=== PATIENT | female | born 1955 | race Caucasian/White ===

== ENCOUNTER → 2017-03-12 | Outpatient (CLI) | payer MEDICARE, OTHER | LOC: WI 14:45 | PROVIDERS: ATTEND Family Medicine Geriatric Medicine | DX: M81.0 Age-related osteoporosis without current pathological fracture (principal) | CPT/HCPCS: 77080 ==

== ENCOUNTER → 2017-06-03 | Outpatient (CLI) | payer MEDICARE, OTHER ==
[2017-06-03 09:42] LABS: ABSOLUTE EOSINOPHILS # (AUTO) 0.1 10^3/uL (0.0-0.6); ABSOLUTE LYMPHOCYTES (AUTO) 1.8 10^3/uL (0.5-4.7); ABSOLUTE MONOCYTES (AUTO) 0.4 10^3/uL (0.1-1.4); ABSOLUTE NEUT (AUTO) 3.5 10^3/uL (1.7-8.2); BASOPHILS % (AUTO) 0.6 % (0-2); EOSINOPHILS % (AUTO) 2.3 % (0-6); HEMATOCRIT 41.3 % (36.0-47.0); HEMOGLOBIN 14.1 g/dL (12.0-15.5); LYMPHOCYTES % (AUTO) 30.8 % (13-45); MEAN CORPUSCULAR HEMOGLOBIN 30.8 pg (27.0-33.4); MEAN CORPUSCULAR HGB CONC 34.3 g/dL (32.0-36.0); MEAN CORPUSCULAR VOLUME 90 fl (80-97); MONOCYTES % (AUTO) 7.3 % (3-13); RED BLOOD COUNT 4.59 10^6/uL (3.72-5.28); RED CELL DISTRIBUTION WIDTH 13.6 % (11.5-14.0); WHITE BLOOD COUNT 5.9 10^3/uL (4.0-10.5)
[2017-06-03 10:14] LABS: ALANINE AMINOTRANSFERASE 90 U/L (9-52); ALBUMIN 4.5 g/dL (3.5-5.0); ALKALINE PHOSPHATASE 108 U/L (38-126); ANION GAP 11 (5-19); ASPARTATE AMINO TRANSFERASE 50 U/L (14-36); BILIRUBIN,DIRECT 0.4 mg/dL (0.0-0.4); BILIRUBIN,TOTAL 0.5 mg/dL (0.2-1.3); BLOOD UREA NITROGEN 13 mg/dL (7-20); CALCIUM 10.2 mg/dL (8.4-10.2); CARBON DIOXIDE 29 mmol/L (22-30); CHLORIDE 104 mmol/L (98-107); CHOLESTEROL 209.71 mg/dL (0-200); CREATININE RESULT 0.56 mg/dL (0.52-1.25); Direct HDL 63 mg/dL (>40); GLUCOSE 89 mg/dL (75-110); POTASSIUM 5.2 mmol/L (3.6-5.0); SODIUM 143.6 mmol/L (137-145); TRIGLYCERIDES 173 mg/dL (<150)
[2017-06-03 10:25] LABS: DIRECT LDL 112 mg/dL (<100)
[2017-06-03 10:29] LABS: VLDL CHOLESTEROL 34.6 mg/dL (10-31)
== END ==
LOC: OD 08:42
PROVIDERS: ATTEND Family Medicine Geriatric Medicine
DX: E78.5 Hyperlipidemia, unspecified (principal); I10 Essential (primary) hypertension; E03.9 Hypothyroidism, unspecified; R79.89 Other specified abnormal findings of blood chemistry; Z79.899 Other long term (current) drug therapy
CPT/HCPCS: 36415; 80053; 80061; 82306; 84443; 85025

== ENCOUNTER → 2017-06-30 | Outpatient (CLI) | payer MEDICARE, OTHER ==
[2017-06-30 10:51] LABS: ALANINE AMINOTRANSFERASE 76 U/L (9-52); ALBUMIN 4.4 g/dL (3.5-5.0); ALKALINE PHOSPHATASE 109 U/L (38-126); ASPARTATE AMINO TRANSFERASE 42 U/L (14-36); BILIRUBIN,DIRECT 0.4 mg/dL (0.0-0.4); BILIRUBIN,TOTAL 0.4 mg/dL (0.2-1.3); TOTAL PROTEIN 6.8 g/dL (6.3-8.2)
== END ==
LOC: OD 09:36
PROVIDERS: ATTEND Family Medicine Geriatric Medicine
DX: R94.6 Abnormal results of thyroid function studies (principal); R79.89 Other specified abnormal findings of blood chemistry; Z79.899 Other long term (current) drug therapy
CPT/HCPCS: 36415; 80076; 84443

== ENCOUNTER → 2017-08-10 | Outpatient (CLI) | payer MEDICARE, OTHER ==
[2017-08-10 14:33] LABS: POTASSIUM 5.1 mmol/L (3.6-5.0)
== END ==
LOC: OD 13:06
PROVIDERS: ATTEND Family Medicine Geriatric Medicine
DX: E87.5 Hyperkalemia (principal); R79.89 Other specified abnormal findings of blood chemistry; Z79.899 Other long term (current) drug therapy
CPT/HCPCS: 36415; 84132; 84450; 84460

== ENCOUNTER → 2017-08-16 | Outpatient (CLI) | payer MEDICARE, OTHER ==
[2017-08-16 11:51] LABS: POTASSIUM 4.6 mmol/L (3.6-5.0)
== END ==
LOC: OD 10:40
PROVIDERS: ATTEND Family Medicine Geriatric Medicine
DX: E78.5 Hyperlipidemia, unspecified (principal); R79.89 Other specified abnormal findings of blood chemistry; Z79.899 Other long term (current) drug therapy
CPT/HCPCS: 36415; 80074; 82977; 84132

== ENCOUNTER → 2017-09-09 | Outpatient (CLI) | payer MEDICARE, OTHER ==
[2017-09-09 15:04] LABS: ALANINE AMINOTRANSFERASE 81 U/L (9-52); ASPARTATE AMINO TRANSFERASE 38 U/L (14-36)
== END ==
LOC: OD 13:26
PROVIDERS: ATTEND Family Medicine Geriatric Medicine
DX: R79.89 Other specified abnormal findings of blood chemistry (principal)
CPT/HCPCS: 36415; 84450; 84460

== ENCOUNTER → 2017-12-10 | Outpatient (CLI) | payer MEDICARE, OTHER ==
[2017-12-10 12:13] LABS: ALANINE AMINOTRANSFERASE 81 U/L (9-52); ASPARTATE AMINO TRANSFERASE 41 U/L (14-36); GAMMA-GLUTAMYL TRANSFERASE 205 U/L (8-78)
== END ==
LOC: OD 10:04
PROVIDERS: ATTEND Family Medicine Geriatric Medicine
DX: R79.89 Other specified abnormal findings of blood chemistry (principal); Z79.899 Other long term (current) drug therapy
CPT/HCPCS: 36415; 82977; 84450; 84460

== ENCOUNTER → 2018-08-09 | Outpatient (CLI) | payer MEDICARE, OTHER ==
--- NOTE | 2018-08-09 09:41 | WOMENS IMAGING REPORT ---
EXAM DESCRIPTION: BILAT SCREENING MAMMO W/CAD COMPLETED DATE/TIME: 08/09/2018 9:26 am REASON FOR STUDY: BILATERAL SCREENING MAMMO/Z12.31 Z12.31 ENCNTR SCREEN MAMMOGRAM FOR MALIGNANT SUNDAY PLASM OF CRYSTAL COMPARISON: New baseline, previous films over 10 years ago TECHNIQUE: Standard craniocaudal and mediolateral oblique views of each breast recorded using [email or web address] l acquisition. LIMITATIONS: None. FINDINGS: Findings present which are benign by mammographic criteria. No suspicious masses, calcifi cations or architectural distortion. Pertinent benign findings: Postsurgical changes from bilateral breast reduction and lift. Read with the assistance of CAD. .[facility] - R2 Cenova Version 1.3 .[facility] - R2 Cenova Version 1.3 .[facility] - R2 Cenova Version 2.4 .[facility] - R2 Cenova Version 2.4 .[facility] - R2 Lead Assembler Version 9.2 Benign mammographic findings may include one or more of the following: Smooth masses, popcorn/rim/co arse calcifications, asymmetries, post-procedure changes, and lesions with long-standing stability. IMPRESSION: BENIGN MAMMOGRAPHIC FINDINGS. BIRADS 2 BREAST DENSITY: a. The breasts are almost entirely fatty. BIRAD: 2 BENIGN FINDING(S) RECOMMENDATION: ROUTINE SCREENING Please continue yearly bilateral screening mammography/tomosynthesis in July 2019 COMMENT: The patient has been notified of the results by letter per SA requirements. Additional no tification policies are in place for contacting patient with suspicious or incomplete findings. Quality ID #[id number]: The [employer] recommends an annual screening mammogram for women aged 40 years or over. This facility utilizes a reminder system to ensure that all patients receive reminder letters, and/or direct phone calls for appointments. This includes reminders for routine scr eening mammograms, diagnostic mammograms, or other Breast Imaging Interventions when appropriate. Th is patient will be placed in the appropriate reminder system. The [employer] (ACR) has developed recommendations for screening MRI of the breast s in certain patient populations, to be used in conjunction with mammography. Breast MRI surveillanc e may be appropriate for women with more than 20% lifetime risk of developing breast cancer as deter mined by genetic testing, significant family history of the disease, or history of mantle radiation f or Hodgkins Disease. ACR Practice Guidelines 2008. TECHNICAL DOCUMENTATION: FINDING NUMBER: (1) ASSESSMENT: (1) JOB ID: [id number] [employer]- All Rights Reserved Reading location - IP/workstation name: [email or web address]
== END ==
LOC: WI 08:45
PROVIDERS: ATTEND Internal Medicine
DX: Z12.31 Encounter for screening mammogram for malignant neoplasm of breast (principal)
CPT/HCPCS: 77067

== ENCOUNTER → 2018-09-05 | Outpatient (CLI) | payer MEDICARE ==
[2018-09-05 11:14] LABS: ABSOLUTE EOSINOPHILS # (AUTO) 0.2 10^3/uL (0.0-0.6); ABSOLUTE LYMPHOCYTES (AUTO) 1.7 10^3/uL (0.5-4.7); ABSOLUTE MONOCYTES (AUTO) 0.4 10^3/uL (0.1-1.4); ABSOLUTE NEUT (AUTO) 3.9 10^3/uL (1.7-8.2); BASOPHILS % (AUTO) 0.6 % (0-2); EOSINOPHILS % (AUTO) 3.6 % (0-6); HEMATOCRIT 41.2 % (36.0-47.0); HEMOGLOBIN 13.9 g/dL (12.0-15.5); MEAN CORPUSCULAR HGB CONC 33.8 g/dL (32.0-36.0); MEAN CORPUSCULAR VOLUME 89 fl (80-97); MONOCYTES % (AUTO) 6.6 % (3-13); PLATELET COUNT 277 10^3/uL (150-450); RED BLOOD COUNT 4.65 10^6/uL (3.72-5.28); RED CELL DISTRIBUTION WIDTH 13.6 % (11.5-14.0); SEGMENTED NEUTROPHILS % (AUTO) 62.2 % (42-78); TOTAL CELLS COUNTED % (AUTO) 100 %; WHITE BLOOD COUNT 6.2 10^3/uL (4.0-10.5)
[2018-09-05 11:49] LABS: ALANINE AMINOTRANSFERASE 52 U/L (9-52); ALBUMIN 4.5 g/dL (3.5-5.0); ALKALINE PHOSPHATASE 131 U/L (38-126); ANION GAP 12 (5-19); ASPARTATE AMINO TRANSFERASE 38 U/L (14-36); BILIRUBIN,DIRECT 0.3 mg/dL (0.0-0.4); BILIRUBIN,TOTAL 0.4 mg/dL (0.2-1.3); BLOOD UREA NITROGEN 14 mg/dL (7-20); CARBON DIOXIDE 30 mmol/L (22-30); CHLORIDE 102 mmol/L (98-107); CHOLESTEROL 225.32 mg/dL (0-200); GLUCOSE 88 mg/dL (75-110); POTASSIUM 4.7 mmol/L (3.6-5.0); SODIUM 143.7 mmol/L (137-145); TOTAL PROTEIN 7.2 g/dL (6.3-8.2); TRIGLYCERIDES 193 mg/dL (<150)
[2018-09-05 12:00] LABS: DIRECT LDL 132 mg/dL (<100)
[2018-09-05 12:02] LABS: VLDL CHOLESTEROL 38.6 mg/dL (10-31)
== END ==
LOC: OD 09:37
PROVIDERS: ATTEND Internal Medicine
DX: E03.9 Hypothyroidism, unspecified (principal); E78.5 Hyperlipidemia, unspecified; R10.9 Unspecified abdominal pain; D64.9 Anemia, unspecified; E55.9 Vitamin D deficiency, unspecified
CPT/HCPCS: 36415; 80053; 80061; 82306; 84443; 85025

== ENCOUNTER 2018-09-19 10:36 | Day surgery (SDC) | payer MEDICARE ==
[~2018-09-19 10:36] MED LIST: PROPOFOL INJ 200 MG/20 ML VIAL IV ONE
[2018-09-19 12:18] VITALS: BP 106/70
--- NOTE | 2018-09-19 12:22 | Operative Report ---
Operative Report DATE OF SURGERY: 09/19/18 Operative Report: The risks, benefits and alternatives of the procedure including the risks of bleeding, perforation requiring surgery are explained to the patient in detail and informed consent was obtained. Patient was brought back to the endoscopy suite and placed in the left, lateral decubital position. Timeout was called. Propofol medication is administered. A rectal examination is done which did not reveal any masses, tears or fissures. An Olympus videoscope was introduced into the patient's rectum. The scope was then carefully advanced all the way to the cecum. The cecum was identified by the usual anatomical landmarks including the ileocecal valve as well as the appendiceal office. Photodocumentation is obtained. The scope was then sequentially pulled back via the various segments of the colon including the ascending colon, hepatic flexure, transverse colon, splenic flexure, descending colon and finally into the rectosigmoid portions of the colon. Retroflexion maneuver was performed. PREOPERATIVE DIAGNOSIS: Change in bowel habits POSTOPERATIVE DIAGNOSIS: Mild right colon inflammation status post biopsy without collagenous, microscopic colitis. OPERATION: Colonoscopy with biopsy SURGEON: STEPHANIE ASHRAF ANESTHESIA: LMAC TISSUE REMOVED OR ALTERED: As noted above. COMPLICATIONS: None. INTRAOPERATIVE FINDINGS: As noted above. PROCEDURE: Patient tolerated the procedure well. No immediate postprocedure complications are noted. Patient discharged in good condition. Discharge date 09/19/2018. Discharge diet: Regular. Discharge activity: Regular. 2-3-week follow-up to discuss findings. Patient is instructed to call the office or proceed to the emergency room should there be any further problems or questions. Wait on the pathology.
== END 2018-09-19 12:09 | disposition home or self-care (01) ==
LOC: END 10:36
PROVIDERS: ATTEND Internal Medicine Gastroenterology
DX: K52.9 Noninfective gastroenteritis and colitis, unspecified (principal); K64.8 Other hemorrhoids; I10 Essential (primary) hypertension; E78.5 Hyperlipidemia, unspecified; E03.9 Hypothyroidism, unspecified; M16.10 Unilateral primary osteoarthritis, unspecified hip; G25.0 Essential tremor; E87.5 Hyperkalemia; I35.8 Other nonrheumatic aortic valve disorders; Z87.891 Personal history of nicotine dependence
CPT/HCPCS: 45380; 88305 ×2; J2704; 811

== ENCOUNTER → 2018-11-02 | Outpatient (CLI) | payer MEDICARE ==
--- NOTE | 2018-11-02 10:57 | RADIOLOGY REPORT (SQ) ---
EXAM DESCRIPTION: CT LUMBAR SPINE WITHOUT COMPLETED DATE/TIME: 11/02/2018 10:32 am REASON FOR STUDY: SPINAL STENOSIS (M48.00) M48.00 SPINAL STENOSIS, SITE UNSPECIFIED COMPARISON: None. TECHNIQUE: Axial images acquired through the lumbar spine without intravenous contrast. Images revi ewed with lung, soft tissue and bone windows. Reconstructed coronal and sagittal MPR images reviewed . All images stored on PACS. All CT scanners at this facility use dose modulation, iterative reconstruction, and/or weight based d osing when appropriate to reduce radiation dose to as low as reasonably achievable (ALARA). [facility]: Dose Right [facility]: CareDose [facility]: Dose Right [facility]: Teradose 4D [facility]: Smart [employer] RADIATION DOSE: CT Rad equipment meets quality standard of care and radiation dose reduction techniq ues were employed. CTDIvol: 25.6 mGy. DLP: 764 mGy-cm. mGy. LIMITATIONS: None. FINDINGS: SEGMENTATION: Normal. No transitional anatomy. ALIGNMENT: Mild lower lumbar dextroconvex spinal curvature. VERTEBRAL BODIES: No evidence of fracture or other acute findings. No suspicious osseous lesions. C hronic endplate changes at L3-4, L4-5 DISCS: Broad-based disc bulge at L2-3 with likely moderate canal stenosis. Disc height loss with cav itation at L3-4 with likely mild to moderate central canal stenosis. Additional moderate disc height loss at L4-5. There is associated osteophytes and subchondral cystic formation. PEDICLES, TRANSVERSE PROCESSES: Evidence of right L4-5 laminectomy. No evidence of fracture. FACETS, POSTERIOR ELEMENTS: Evidence of posterior decompression L4-5. No evidence of facet dislocati on. Lower lumbar Facet arthropathy greatest at L3 through S1 on the left. There is mild to moderate osseous neural foraminal narrowing at L4-5 and L5-S1 on the left and ycfr-uv-trlxcobl osseous neural foraminal narrowing at L3-4 and L4-5 on the right. HARDWARE: None in the spine. VISUALIZED RIBS: No fractures. SOFT TISSUES: Aortoiliac atherosclerosis. Calcified hepatic granuloma. OTHER: No other significant finding. IMPRESSION: No evidence of acute bony abnormality. Lower lumbar dextroconvex curvature with associated degenerative change. Facet disease and disc bulg e with ntok-an-qsifexgv neural foraminal narrowing at L3-S1 as detailed above. Evidence of prior pos terior decompression at L4-5 with at least moderate spinal canal stenosis at L2-3 and L3-4. TECHNICAL DOCUMENTATION: JOB ID: [id number] Quality ID # [id number]: Final reports with documentation of one or more dose reduction techniques (e.g., Au tomated exposure control, adjustment of the mA and/or kV according to patient size, use of iterative reconstruction technique) 2010 [employer]- All Rights Reserved Reading location - IP/workstation name: [facility]
--- NOTE | 2018-11-02 12:22 | RADIOLOGY REPORT (SQ) ---
EXAM DESCRIPTION: HIP RIGHT AP/LATERAL COMPLETED DATE/TIME: 11/02/2018 10:42 am REASON FOR STUDY: PAIN IN RIGHT HIP (M25.551) M48.00 SPINAL STENOSIS, SITE UNSPECIFIED COMPARISON: None. NUMBER OF VIEWS: Two views. TECHNIQUE: AP pelvis and additional frog-leg view of the right hip. LIMITATIONS: None. FINDINGS: MINERALIZATION: Decreased. RIGHT HIP: No evidence of fracture or dislocation. Extensive degenerative change with joint space lo ss, subchondral sclerosis and osteophytosis. There is superior bone on bone contact. LEFT HIP: Partially evaluated left total hip arthroplasty with screw fixated acetabular component. PUBIS AND ISCHIUM: No fracture. PELVIS: No fracture. SACRUM: No fracture or dislocation. No worrisome bone lesions. LOWER LUMBAR SPINE: Lower lumbar curvature, degenerative disc disease and facet arthropathy. SOFT TISSUES: Scattered for pelvic phleboliths. OTHER: No other significant finding. IMPRESSION: No evidence of acute bony abnormality. Moderate to severe right hip osteoarthritic change. Partially evaluated left hip arthroplasty. TECHNICAL DOCUMENTATION: JOB ID: [id number] [employer]- All Rights Reserved Reading location - IP/workstation name: [facility]-[email or web address]
== END ==
LOC: RAD 10:19
PROVIDERS: ATTEND Internal Medicine
DX: M48.00 Spinal stenosis, site unspecified (principal); M25.551 Pain in right hip
CPT/HCPCS: 72131

== ENCOUNTER → 2018-11-23 | Outpatient (CLI) | payer MEDICARE ==
[2018-11-23 15:16] LABS: A TYPE INFLUENZA AG NEGATIVE (NEGATIVE); B INFLUENZA AG NEGATIVE (NEGATIVE)
== END ==
LOC: OD 14:24
PROVIDERS: ATTEND Internal Medicine
DX: J11.1 Influenza due to unidentified influenza virus with other respiratory manifestations (principal)
CPT/HCPCS: 87804

== ENCOUNTER → 2019-09-18 | Outpatient (CLI) | payer MEDICARE ==
[2019-09-18 14:16] LABS: FOLATE > 20.00 ng/mL (>2.76)
== END ==
LOC: OD 12:08
PROVIDERS: ATTEND Pain Medicine Interventional Pain Medicine
DX: M79.2 Neuralgia and neuritis, unspecified (principal)
CPT/HCPCS: 36415; 82607; 82652; 82746

== ENCOUNTER → 2019-12-07 | Outpatient (CLI) | payer MEDICARE ==
--- NOTE | 2019-12-07 13:33 | EKG REPORT ---
SEVERITY:- BORDERLINE ECG - SINUS RHYTHM LOW VOLTAGE THROUGHOUT : Confirmed by: David Light MD 07-Dec-2019 13:31:52
--- NOTE | 2019-12-07 13:57 | RADIOLOGY REPORT (SQ) ---
EXAM DESCRIPTION: CHEST PA/LATERAL COMPLETED DATE/TIME: 12/07/2019 12:57 pm REASON FOR STUDY: PRE-OP COMPARISON: None. EXAM PARAMETERS: NUMBER OF VIEWS: two views TECHNIQUE: Digital Frontal and Lateral radiographic views of the chest acquired. RADIATION DOSE: NA LIMITATIONS: none FINDINGS: LUNGS AND PLEURA: No opacities, masses or pneumothorax. No pleural effusion. MEDIASTINUM AND HILAR STRUCTURES: No masses or contour abnormalities. HEART AND VASCULAR STRUCTURES: Heart normal size. No evidence for failure. BONES: No acute findings. HARDWARE: None in the chest. OTHER: No other significant finding. IMPRESSION: NO SIGNIFICANT RADIOGRAPHIC FINDING IN THE CHEST. TECHNICAL DOCUMENTATION: JOB ID: [id number] 2010 [employer]- All Rights Reserved Reading location - IP/workstation name: [email or web address]
[2019-12-07 14:00] LABS: ABSOLUTE EOSINOPHILS # (AUTO) 0.1 10^3/uL (0.0-0.6); ABSOLUTE LYMPHOCYTES (AUTO) 2.2 10^3/uL (0.5-4.7); ABSOLUTE MONOCYTES (AUTO) 0.4 10^3/uL (0.1-1.4); ABSOLUTE NEUT (AUTO) 3.8 10^3/uL (1.7-8.2); BASOPHILS % (AUTO) 0.6 % (0-2); EOSINOPHILS % (AUTO) 2.1 % (0-6); HEMATOCRIT 39.3 % (36.0-47.0); HEMOGLOBIN 13.3 g/dL (12.0-15.5); LYMPHOCYTES % (AUTO) 33.3 % (13-45); MEAN CORPUSCULAR HEMOGLOBIN 29.1 pg (27.0-33.4); MEAN CORPUSCULAR HGB CONC 33.8 g/dL (32.0-36.0); MEAN CORPUSCULAR VOLUME 86 fl (80-97); MONOCYTES % (AUTO) 6.3 % (3-13); PLATELET COUNT 291 10^3/uL (150-450); RED BLOOD COUNT 4.58 10^6/uL (3.72-5.28); RED CELL DISTRIBUTION WIDTH 13.9 % (11.5-14.0); SEGMENTED NEUTROPHILS % (AUTO) 57.7 % (42-78); TOTAL CELLS COUNTED % (AUTO) 100 %; WHITE BLOOD COUNT 6.6 10^3/uL (4.0-10.5)
[2019-12-07 14:05] LABS: APPEARANCE,URINE CLEAR; BILIRUBIN,URINE NEGATIVE (NEGATIVE); COLOR,URINE YELLOW; GLUCOSE, URINE NEGATIVE (NEGATIVE); KETONES,URINE NEGATIVE (NEGATIVE); LEUKOCYTE ESTERASE,URINE TRACE (NEGATIVE); NITRITE,URINE NEGATIVE (NEGATIVE); PROTEIN,URINE NEGATIVE (NEGATIVE); URINE SPECIFIC GRAVITY 1.015; UROBILINOGEN,URINE NEGATIVE mg/dL (<2.0)
[2019-12-07 14:36] LABS: ALBUMIN 4.2 g/dL (3.5-5.0); ANION GAP 12 (5-19); BLOOD UREA NITROGEN 14 mg/dL (7-20); CALCIUM 9.7 mg/dL (8.4-10.2); CARBON DIOXIDE 25 mmol/L (22-30); CHLORIDE 102 mmol/L (98-107); GLUCOSE 62 mg/dL (75-110); POTASSIUM 4.1 mmol/L (3.6-5.0)
[2019-12-07 14:41] LABS: PREALBUMIN 27.4 mg/dL (17.6-36.0)
[2019-12-07 14:45] LABS: C-REACTIVE PROTEIN < 5.0 mg/L (<10.0)
[2019-12-07 14:46] LABS: ERYTHROCYTE SEDIMENTATION RATE 16 mm/hr (0-30)
== END ==
LOC: OD 12:18
PROVIDERS: ATTEND Orthopaedic Surgery
DX: Z01.818 Encounter for other preprocedural examination (principal); R94.31 Abnormal electrocardiogram [ECG] [EKG]; I10 Essential (primary) hypertension
CPT/HCPCS: 36415; 71046; 80048; 81001; 82040; 82306; 84134; 85025; 85652; 86140; 93005; 93010

== ENCOUNTER 2020-01-02 05:23 | Day surgery (SDC) | payer MEDICARE ==
[~2020-01-02 05:23] MED LIST changes: +ACETAMINOPHEN 325 MG TABLET ONE; +ACETAMINOPHEN 325 MG TABLET PO PRN; +CEFAZOLIN SODIUM 2 GM in DEXTROSE 5%-WATER 100 ML IV PRN; +CELECOXIB 200 MG CAPSULE ONE; +CELECOXIB 200 MG CAPSULE PO PRN; +GABAPENTIN 100 MG CAPSULE ONE; +GABAPENTIN 100 MG CAPSULE PO PRN; +LACTATED RINGERS 1000 ML IV PRN; +LIDOCAINE 0.5% INJ-PF (5 MG/ML) 50 ML SDV SUBCUT PRN; +ONDANSETRON HCL INJ/PF 4 MG/2 ML SDV IV PRN; +ONDANSETRON HCL INJ/PF 4 MG/2 ML SDV ONE; +OXYCODONE HCL SR 10 MG TABLET PO ONE; +OXYCODONE HCL SR 10 MG TABLET PO PRN; +PANTOPRAZOLE SODIUM 20 MG TABLET.DR PO ONE; +PANTOPRAZOLE SODIUM 20 MG TABLET.DR PO PRN; -PROPOFOL INJ 200 MG/20 ML VIAL IV ONE; +SCOPOLAMINE HYDROBROMIDE 1.5 MG PATCH.TD72 ONE; +SCOPOLAMINE HYDROBROMIDE 1.5 MG PATCH.TD72 TD PRN; +TRAMADOL HCL 50 MG TABLET ONE; +TRAMADOL HCL 50 MG TABLET PO PRN; +TRANEXAMIC ACID INJ/PF 1,000 MG/10 ML SDV IV PRN; +VANCOMYCIN HCL 1,000 MG in DEXTROSE 5%-WATER 250 ML IV PRN
[2020-01-02] MEDS ORDERED: FENTANYL CITRATE INJ/PF 100 MCG/2 ML AMPUL ONE (06:20)
[2020-01-02] MEDS ORDERED: DEXAMETHASONE SOD PHOSPHATE INJ 4 MG/1 ML VIAL ONE (06:20)
[2020-01-02] MEDS ORDERED: MIDAZOLAM 2 MG/2 ML INJ ONE (06:20)
[2020-01-02] MEDS ORDERED: TRANEXAMIC ACID INJ/PF 1,000 MG/10 ML SDV ONE ×2 (06:20→10:31)
[2020-01-02] MEDS ORDERED: ONDANSETRON HCL INJ/PF 4 MG/2 ML SDV ONE (06:20)
[2020-01-02] MEDS ORDERED: PROPOFOL INJ 200 MG/20 ML VIAL IV ONE ×2 (06:21→09:45)
[2020-01-02] MEDS ORDERED: LIDOCAINE 0.5% INJ-PF (5 MG/ML) 50 ML SDV ONE (06:21)
[2020-01-02] MEDS ORDERED: EPINEPHRINE INJ/PF 1 MG/1 ML AMPULE ONE (06:26)
[2020-01-02] MEDS ORDERED: BUPIVACAINE HCL 0.25 % INJ/PF (2.5 MG/1 ML) 30 ML VIAL ONE (07:06)
[2020-01-02] MEDS ORDERED: KETOROLAC TROMETHAMINE INJ/PF 30 MG/1 ML SDV ONE (07:06)
[2020-01-02] MEDS ORDERED: VANCOMYCIN HCL INJ 1000 MG VIAL ONE (07:06)
[2020-01-02] MEDS ORDERED: LIDOCAINE 1% INJ-PF (10 MG/ML) 30 ML SDV ONE (08:05)
[2020-01-02] MEDS ORDERED: FENTANYL CITRATE INJ/PF 100 MCG/2 ML AMPUL IV PRN ×3 (08:06)
[2020-01-02] MEDS ORDERED: MEPERIDINE HCL/PF INJ 25 MG/1 ML DISP.SYRIN IV PRN (08:06)
[2020-01-02] MEDS ORDERED: ONDANSETRON HCL INJ/PF 4 MG/2 ML SDV IV PRN (08:06)
[2020-01-02] MEDS ORDERED: DIPHENHYDRAMINE HCL 50 MG/ML VIAL IV PRN (08:06)
[2020-01-02] MEDS ORDERED: MORPHINE SULFATE 10 MG/ML INJ IV PRN ×2 (08:06→09:59)
[2020-01-02] MEDS ORDERED: PROMETHAZINE HCL INJ 25 MG/1 ML VIAL IV PRN ×2 (08:06)
[2020-01-02] MEDS ORDERED: OXYCODONE HCL IR 5 MG TABLET PO PRN (09:59)
[2020-01-02] MEDS ORDERED: TRAMADOL HCL 50 MG TABLET PO PRN (10:00)
[2020-01-02] MEDS ORDERED: DIPHENHYDRAMINE HCL 25 MG CAPSULE PO PRN (10:01)
[2020-01-02] MEDS ORDERED: PANTOPRAZOLE SODIUM 20 MG TABLET.DR PO PRN (10:01)
[2020-01-02] MEDS ORDERED: ZOLPIDEM TARTRATE 5 MG TABLET PO PRN (10:01)
[2020-01-02] MEDS ORDERED: DOCUSATE SODIUM 100 MG CAPSULE PO PRN (10:03)
[2020-01-02] MEDS ORDERED: NORMAL SALINE 1000 ML 1,000 ML IV PRN (10:04)
[2020-01-02] MEDS ORDERED: ONDANSETRON 4 MG TAB.RAPDIS PO PRN (10:04)
[2020-01-02] MEDS ORDERED: DEXAMETHASONE SOD PHOS INJ 10 MG/1 ML VIAL ONE (10:31)
--- NOTE | 2020-01-02 13:26 | RADIOLOGY REPORT (SQ) ---
EXAM DESCRIPTION: NO CHG FLUORO; HIP IN OPERATING RM COMPLETED DATE/TIME: 01/02/2020 11:12 am REASON FOR STUDY: RIGHT HIP TOTAL ARTHROPLASTY ASSISTED WITH FLUORO IN OR COMPARISON: None. FLUOROSCOPY TIME: No recorded fluoro time. 2 Images saved to PACS LIMITATIONS: None. PROCEDURE: Right hip arthroplasty. FINDINGS: Images from fluoro document right hip arthroplasty in progress. IMPRESSION: Right hip arthroplasty in progress. Refer to operative note for further information. COMMENT: PQRS 6045F: Fluoroscopy time of the procedure is documented in the report. TECHNICAL DOCUMENTATION: JOB ID: [id number] 2010 [employer]- All Rights Reserved Reading location - IP/workstation name: [email or web address]
--- NOTE | 2020-01-02 13:26 | RADIOLOGY REPORT (SQ) ---
EXAM DESCRIPTION: NO CHG FLUORO; HIP IN OPERATING RM COMPLETED DATE/TIME: 01/02/2020 11:12 am REASON FOR STUDY: RIGHT HIP TOTAL ARTHROPLASTY ASSISTED WITH FLUORO IN OR COMPARISON: None. FLUOROSCOPY TIME: No recorded fluoro time. 2 Images saved to PACS LIMITATIONS: None. PROCEDURE: Right hip arthroplasty. FINDINGS: Images from fluoro document right hip arthroplasty in progress. IMPRESSION: Right hip arthroplasty in progress. Refer to operative note for further information. COMMENT: PQRS 6045F: Fluoroscopy time of the procedure is documented in the report. TECHNICAL DOCUMENTATION: JOB ID: [id number] 2010 [employer]- All Rights Reserved Reading location - IP/workstation name: [email or web address]
--- NOTE | 2020-01-02 13:34 | RADIOLOGY REPORT (SQ) ---
EXAM DESCRIPTION: HIP RIGHT AP/LATERAL COMPLETED DATE/TIME: 01/02/2020 10:26 am REASON FOR STUDY: post op total hip replacement M16.12 UNILATERAL PRIMARY OSTEOARTHRITIS, LEFT HIP COMPARISON: None. NUMBER OF VIEWS: Two views. TECHNIQUE: AP pelvis and additional frog-leg view of the right hip. LIMITATIONS: None. FINDINGS: Postoperative images show right hip arthroplasty in good position. Pre-existing left hip arthroplasty. IMPRESSION: Right hip arthroplasty. Refer to operative note for further information. TECHNICAL DOCUMENTATION: JOB ID: [id number] 2010 [employer]- All Rights Reserved Reading location - IP/workstation name: [email or web address]
--- NOTE | 2020-01-02 13:55 | Operative Report ---
Operative Report DATE OF SURGERY: 01/02/20 PREOPERATIVE DIAGNOSIS: Severe right hip primary osteoarthritis POSTOPERATIVE DIAGNOSIS: Severe right hip primary osteoarthritis OPERATION: Right total hip arthroplasty SURGEON: SHENG GOODRICH JR ANESTHESIA: Spinal COMPLICATIONS: None ESTIMATED BLOOD LOSS: 200 cc PROCEDURE: Implants: Biomet Taperloc micro-plasty size 12 femoral stem with lateral offset, a G7 size 50 cup, and a standard liner, a standard neck length 32 mm ceramic head BRIEF HISTORY: 64 year old female with severe degenerative arthritis of right hip, which has failed conservative treatment and has elected for a total hip arthroplasty. Risks include but are not limited to bleeding, infection, anesthesia, , injury to nerve or vessel, pain, scar, leg length inequality, dislocation, future surgery, and blood clots. Patient read through the pre-op counseling form and signed and solicited for surgery on their right hip. OPERATIVE PROCEDURE: Patient was brought to the operating room on and underwent spinal anesthesia. 2 grams of Ancef and 1 g of vancomycin was given. After proper anesthesia was obtained, patient was positioned, padded, prepped, and draped in the usual sterile fashion on the operating room table. Appropriate time out was performed. An anterior approach to the hip was undertaken with meticulous hemostasis through the deep interval. A capsulectomy was performed followed by exposure of the femoral neck. The femoral neck was cut in line with the femoral broach and the femoral head was removed. The acetabulum was then exposed with three retractors in an atraumatic fashion. Soft tissue and osteophytes were removed. Medialization reaming was performed followed by anatomic reaming up to accept a 50 mm acetabulum. Wound was irrigated with dilute betadyne solution and the 50 mm acetabulum was impacted into correct position and stability checked by manipulating the impaction handle which rocked the pelvis. A standard liner was impacted into the shell with good stability. Potential impinging osteophytes were removed. Attention was then directed toward the femur, which was exposed with two retractors in an atraumatic fashion. A bone hook was placed to carefully perform releases along the superior capsule until the femur was safely delivered through the wound. A primer boxer was utilized followed by lateralization rasping and then broaching up to accept a 12 femur. With a lateral offset neck and a standard head, stability was good in flexion and extension with equal leg lengths. The real lateral offset femur was impacted into a copiously irrigated femoral canal. A 32 mm standard head was impacted on a clean dry femoral taper. The hip was irrigated and reduced, further irrigation with antibiotic solution, betadine solution, then antibiotic solution. Bleeders were coagulated with bovie cautery. The fascia was then closed with number 2 Stratofix; the subcutaneous tissue closed with interrupted inverted 2-0 monocryl then running 3-0 monocryl subcuticular. Dermabond skin glue was applied followed by a silver dressing. All needle sponge and instrument counts were correct. Patient was awakened from sedation anesthesia and taken to recovery room in good condition. Thank you, Sheng Goodrich, DO
[2020-01-02] MEDS: ACETAMINOPHEN 325 MG TABLET PO SCH ×2 (14:19→22:08)
[2020-01-02] MEDS: KETOROLAC TROMETHAMINE INJ/PF 30 MG/1 ML SDV IV SCH (17:53)
[2020-01-02] MEDS: OXYCODONE HCL IR 5 MG TABLET PO PRN ×2 (17:54→22:08)
[2020-01-02] MEDS: CEFAZOLIN SODIUM 2 GM in DEXTROSE 5%-WATER 100 ML IV SCH (18:45)
[2020-01-02] MEDS: GABAPENTIN 100 MG CAPSULE PO SCH (22:08)
[2020-01-03] MEDS: CEFAZOLIN SODIUM 2 GM in DEXTROSE 5%-WATER 100 ML IV SCH (01:54)
[2020-01-03] MEDS: KETOROLAC TROMETHAMINE INJ/PF 30 MG/1 ML SDV IV SCH ×2 (01:54→09:16)
[2020-01-03] MEDS: ACETAMINOPHEN 325 MG TABLET PO SCH (06:36)
[2020-01-03 06:55] VITALS: BP 90/64
--- NOTE | 2020-01-03 07:19 | PDOC PROGRESS REPORT ---
Subjective Progress Note for:: 01/03/20 Subjective:: The patient is doing well this AM. Pain is present but not out of proportion and well controlled on their current medications. There are no new symptoms or overnight events. Overall they are felling well without complaints. They deny chest pain, shortness of breath or motor or sensory loss. Reason For Visit: M16.11 UNILATERAL PRIMARY OSTEOARTHRITIS, RIGHT HI Physical Exam Vital Signs: Temp Pulse Resp BP Pulse Ox 98.6 F 76 18 90/64 L 100 01/03/20 06:54 01/03/20 06:54 01/03/20 06:54 01/03/20 06:54 01/03/20 06:54 Intake & Output 01/02/20 01/03/20 01/04/20 06:59 06:59 06:59 Intake Total 0 2680 Output Total 875 Balance 0 1805 Weight 76.2 kg Physical Exam: Right lower extremity -Pulses 2+ distally -Compartments soft -Wound clean dry and intact no drainage, appropriate appearance for postop day 1 -Sensation grossly intact to L3-4-5 S1 -Motor grossly intact to EHL TA gastroc and quad - Able to perform quad extension and elevate heel off of bed. Results Laboratory Results: 01/02/20 06:10 01/02/20 06:10 Blood Type O POSITIVE Antibody Screen NEGATIVE Impressions: Fluoroscopy 01/02/20 00:00 IMPRESSION: Right hip arthroplasty in progress. Refer to operative note for further information. Hip X-Ray 01/02/20 00:00 IMPRESSION: Right hip arthroplasty in progress. Refer to operative note for further information. Hip/Pelvis X-Ray 01/02/20 09:57 IMPRESSION: Right hip arthroplasty. Refer to operative note for further information. Assessment & Plan - Diagnosis (1) Status post total replacement of right hip Is this a current diagnosis for this admission?: Yes Plan: Postop day 1 - 2 doses of Ancef postoperatively q 8 hours to complete 24 hours perioperatively -Weightbearing as tolerated, no precautions, encourage out of bed CARMELA for ADL training - PT/OT - Keep knee extended in bed, rolled towel under the ankle to obtain full extensi on -aspirin 325 daily for DVT prophylaxis for 6 weeks -multimodal pain management to avoid excessive narcotics, including gabapentin, tramadol, Toradol, acetaminophen. -Dressing should not be removed for 7 to 10 days until seen in the office -May shower with the dressing intact, if it starts to come off she should not get the incision wet. -I would like to follow the patient my office within the next 7 to [address] at [address] [place] [address]. in [place] office #: [phone] - Time Time Spent with patient: Less than 15 minutes
--- NOTE | 2020-01-03 07:23 | PDOC DISCHARGE SUMMARY ---
Impression - Admit/DC Date/PCP Admission Date/Primary Care Provider: EMLANI MEANS MD Discharge Date: 01/03/20 - Discharge Diagnosis (1) Status post total replacement of right hip Is this a current diagnosis for this admission?: Yes - Additional Information Resuscitation Status: Full Code Discharge Diet: As Tolerated Discharge Activity: Activity As Tolerated, No Driving, Keep Legs Elevated, No Lifting Over 10 Pounds, Slowly Increase Activity, No tub bath, Walk Frequently Referrals: MELANI MEANS MD [Primary Care Provider] - Home Medications: Citalopram Hydrobromide [Celexa] 40 mg PO DAILY 09/13/18 Montelukast Sodium [Singulair 10 mg Tablet] 10 mg PO DAILY 09/13/18 Multivitamin [Multivitamins] 1 each PO DAILY 09/13/18 [place]-3 Fatty Acids/Fish Oil [Fish Oil 1,000 mg Capsule] 1,000 mg PO DAILY 09/13/18 Paroxetine HCl [Paxil] 60 mg PO DAILY 09/13/18 Atorvastatin Calcium [Lipitor 40 mg Tablet] 40 mg PO QHS 12/21/19 Topiramate [Topamax 100 mg Tablet] 100 mg PO TID 12/21/19 Valsartan/Hydrochlorothiazide [Valsartan-Hctz 160-12.5 mg Tab] 1 tab PO DAILY 12/21/19 Calcium Carbonate/Vitamin D3 [Calcium 1,000 + D3 Caplet] 1 tab PO BID 01/02/20 Levothyroxine Sodium 150 mcg PO DAILY 01/02/20 Acetaminophen [Tylenol 325 mg Tablet] 975 mg PO Q8 tablet 01/03/20 Aspirin [Ecotrin 325 mg EC Tablet] 325 mg PO DAILY tabec 01/03/20 Celecoxib [Celebrex 200 mg Capsule] 200 mg PO DAILY capsule 01/03/20 Gabapentin [Neurontin 100 mg Capsule] 100 mg PO Q12 capsule 01/03/20 Oxycodone HCl [Oxy-Ir 5 mg Tablet] 5 mg PO Q4HP PRN tablet 01/03/20 Oxycodone HCl [Oxy-Ir 5 mg Tablet] 10 mg PO Q4HP PRN tablet 01/03/20 Tramadol HCl [Ultram 50 mg Tablet] 50 mg PO Q4HP PRN tablet 01/03/20 History of Present Illiness History of Present Illness: EAMON BENDER is a 64 year old female Ms. Bender is a very pleasant 64-year-old female who presented to my clinic with chronic right hip pain that is been going on for over a year. After thorough work-up and attempts at conservative treatment including activity modification and amyl-fgo-zarxulz pain medication, they were having severe difficulty with ambulation and was over the counter pain medication for daily activity. They found the pain debilitating and decreasing thier quality of life as they were unable to perform activities of daily living such as ambulating short distances and getting in and out of the car. After a thorough work-up including x-rays that demonstrated joint space narrowing, xzhd-gp-yquz contact, subchondral sclerosis, and osteophyte formation as well as discussing risks and benefits and other treatment options, the patient elected to proceed with a right total hip arthroplasty. Hospital Course Hospital Course: They were brought to the operating room on 01/02/2020 and underwent right total hip arthroplasty and tolerated procedure very well with out complication. They were then admitted to the hospital floor for postoperative medical management, monitoring, and pain control. On postoperative day #1 they were ambulating well with physical therapy, to the degree that they approved them for discharge home. They were discharged home on 01/03/2020. They had no acute events or complicat ions over the course of their stay. All detailed instructions and prescriptions were provided to the patient prior to admission on the year prior office visit. Physical Exam Vital Signs: Temp Pulse Resp BP Pulse Ox 98.6 F 76 18 90/64 L 100 01/03/20 06:54 01/03/20 06:54 01/03/20 06:54 01/03/20 06:54 01/03/20 06:54 Intake & Output 01/02/20 01/03/20 01/04/20 06:59 06:59 06:59 Intake Total 0 2680 Output Total 875 Balance 0 1805 Weight 76.2 kg Results Laboratory Results: Potassium 4.9 mmol/L (3.6-5.0) 01/02/20 06:10 Blood Type O POSITIVE 01/02/20 06:10 Antibody Screen NEGATIVE 01/02/20 06:10 Impressions: Fluoroscopy 01/02/20 00:00 IMPRESSION: Right hip arthroplasty in progress. Refer to operative note for further information. Hip X-Ray 01/02/20 00:00 IMPRESSION: Right hip arthroplasty in progress. Refer to operative note for further information. Hip/Pelvis X-Ray 01/02/20 09:57 IMPRESSION: Right hip arthroplasty. Refer to operative note for further information. Stroke Is this a Stroke Patient?: No Acute Heart Failure - Is this a Heart Failure Patient?: No
[2020-01-03] MEDS: GABAPENTIN 100 MG CAPSULE PO SCH (09:15)
[2020-01-03] MEDS ORDERED: CELECOXIB 200 MG CAPSULE PO SCH (10:00)
[2020-01-03] MEDS ORDERED: POLYETHYLENE GLYCOL 3350 POWDER 17 GM/1 PACKET PO SCH (10:00)
[2020-01-03] MEDS ORDERED: ASPIRIN 325 MG TABLET, ENT COATED PO SCH (10:00)
== END 2020-01-03 10:25 | disposition home or self-care (01) ==
LOC: OROUT 05:23 → 4S 11:05 → OROUT 01-03 10:25
PROVIDERS: ATTEND Orthopaedic Surgery
DX: M16.11 Unilateral primary osteoarthritis, right hip (principal); Z79.82 Long term (current) use of aspirin; Z79.899 Other long term (current) drug therapy; I10 Essential (primary) hypertension; E03.9 Hypothyroidism, unspecified; J45.909 Unspecified asthma, uncomplicated; Z87.891 Personal history of nicotine dependence
CPT/HCPCS: 86900; 86901; 36415; 86850; 84132; 73502; 73501; 97110 ×2; 97116 ×2; 97163; 97535; 97166; 01214; 27130; C1887; A9270 ×12; J2250; J0690 ×2; J1100 ×2; J0171; J3490 ×3; J1885 ×2; J2405; J7060 ×3; J2704; J3370; J3010

== ENCOUNTER → 2020-04-05 | Outpatient (CLI) | payer MEDICARE ==
[2020-04-05 11:18] LABS: ALBUMIN 4.4 g/dL (3.5-5.0); ALKALINE PHOSPHATASE 105 U/L (38-126); ANION GAP 5 (5-19); ASPARTATE AMINO TRANSFERASE 41 U/L (14-36); BILIRUBIN,TOTAL 0.2 mg/dL (0.2-1.3); BLOOD UREA NITROGEN 15 mg/dL (7-20); CALCIUM 10.1 mg/dL (8.4-10.2); CARBON DIOXIDE 25 mmol/L (22-30); CHLORIDE 111 mmol/L (98-107); CHOLESTEROL 183.41 mg/dL (0-200); GLUCOSE 90 mg/dL (75-110); TOTAL PROTEIN 7.1 g/dL (6.3-8.2); TRIGLYCERIDES 67 mg/dL (<150)
[2020-04-05 11:30] LABS: DIRECT LDL 89 mg/dL (<100)
== END ==
LOC: OD 10:09
PROVIDERS: ATTEND Family Medicine
DX: E78.5 Hyperlipidemia, unspecified (principal); I10 Essential (primary) hypertension; E03.9 Hypothyroidism, unspecified
CPT/HCPCS: 36415; 80053; 80061; 84443

== ENCOUNTER → 2020-05-14 | Day surgery (SDC) | payer MEDICARE ==
[~2020-05-14] MED LIST changes: -ACETAMINOPHEN 325 MG TABLET ONE; -ACETAMINOPHEN 325 MG TABLET PO PRN; +BUPIVACAINE HCL 0.5 % INJ/PF 30 ML SDV ONE; -CEFAZOLIN SODIUM 2 GM in DEXTROSE 5%-WATER 100 ML IV PRN; -CELECOXIB 200 MG CAPSULE ONE; -CELECOXIB 200 MG CAPSULE PO PRN; -GABAPENTIN 100 MG CAPSULE ONE; -GABAPENTIN 100 MG CAPSULE PO PRN; -LACTATED RINGERS 1000 ML IV PRN; -LIDOCAINE 0.5% INJ-PF (5 MG/ML) 50 ML SDV SUBCUT PRN; +LIDOCAINE 1% INJ-PF (10 MG/ML) 30 ML SDV ONE; +LIDOCAINE 2% INJ (20 MG/ML) 20 ML MDV ONE; +METHYLPREDNISOLONE ACETATE INJ 40 MG/1 ML ML ONE; -ONDANSETRON HCL INJ/PF 4 MG/2 ML SDV IV PRN; -ONDANSETRON HCL INJ/PF 4 MG/2 ML SDV ONE; -OXYCODONE HCL SR 10 MG TABLET PO ONE; -OXYCODONE HCL SR 10 MG TABLET PO PRN; -PANTOPRAZOLE SODIUM 20 MG TABLET.DR PO ONE; -PANTOPRAZOLE SODIUM 20 MG TABLET.DR PO PRN; -SCOPOLAMINE HYDROBROMIDE 1.5 MG PATCH.TD72 ONE; -SCOPOLAMINE HYDROBROMIDE 1.5 MG PATCH.TD72 TD PRN; -TRAMADOL HCL 50 MG TABLET ONE; -TRAMADOL HCL 50 MG TABLET PO PRN; -TRANEXAMIC ACID INJ/PF 1,000 MG/10 ML SDV IV PRN; -VANCOMYCIN HCL 1,000 MG in DEXTROSE 5%-WATER 250 ML IV PRN
--- NOTE | 2020-05-14 14:08 | Operative Report ---
PREOPERATIVE DIAGNOSIS: POSTOPERATIVE DIAGNOSIS: PROCEDURE: 1. Radiofrequency Ablation of Right L5 Dorsal Ramus 2. Sacroiliac Joint Ablation - Lateral Branches of RT S1, S2, S3 DATE OF PROCEDURE: May 14, 2020 ANESTHESIA: Local COMPLICATIONS: None CONSENT: A full description of the procedure was provided including benefits as well as possible complications. All questions were answered and informed consent was given and signed. ASA guidelines for fasting were verified prior to sedation. PROCEDURE IN DETAIL The patient was brought into the fluoroscopy suite and carefully assisted into the prone position on the fluoroscopy table and allowed to adjust to a position of comfort. A grounding pad was placed on the left thigh. The low back and buttocks were widely prepped with a chloraprep solution, allowed to air dry and draped in standard sterile surgical fashion. Local anesthesia was provided by 1 mL of 1 % lidocaine delivered with a 25 g needle. PROCEDURE #1: Radiofrequency Ablation of Dorsal Ramus of L5. A 17g 50mm radiofrequency introducer needle was placed to the planned anatomic target, guided with intermittent fluoroscopy with a perpendicular approach, to terminally place at the Right sacral ala. The stylets were removed and the radiofrequency probes with a 4mm active tip were then inserted. Needle tip position of the probes were verified in the AP, oblique, and lateral views. At each site, the medial branch nerve was stimulated at 2Hz to a maximum of 1- 2volts determined to finalize safe needle and electrode placement. The patient was awake and responsive during this portion of the procedure. Each target was anesthetized with 1-2mL of 2% lidocaine anesthesia for lesioning and then each target was lesioned at 80 degrees Celsius for 2 minutes and 30 seconds. Tissue impedences were noted to be between 250 and 500 Ohms. PROCEDURE #2: Radiofrequency Ablation of S1, S2, S3 Lateral Branches Using the AP fluoroscopic view for visualization of the lateral PSFA, appropriate skin starting positions were defined. Using the PSFA as a "clock- face", the positions were: S1; Right = 1 oclock, 3 oclock and 5 oclock S2; Right = 1 oclock, 3 oclock and 5 oclock S3; Right = 1 oclock, 5 oclock Using fluoroscopic guidance, a 17g introducer needle was inserted sequentially onto the target positions described above until the introducer tip touched the bony surface of the sacrum. The stylet was withdrawn from the introducer and the radiofrequency probe with a 4 mm active tip was fully inserted into the introducer. A lateral view was obtained for standard reference. At each of the targets, needle placement was verified with the use of multi-planar fluoroscopy. The needle tip position was approximately 7 - 10mm lateral to the PSFA as determined by using an Epsilon ruler. At each site, the lateral branch nerve was stimulated at 2 Hz to a maximum of 1- 2 volts determined to finalize safe needle and electrode placement. The patient was awake and responsive during this portion of the procedure. Each target was anesthetized with 1-2 mL of 1% lidocaine anesthesia for lesioning and then each target was lesioned at 80 degrees Celsius for 2 minutes and 30 seconds. Tissue impedences were noted to be between 250- 500 Ohms. At the conclusion of the lesioning the electrodes were removed. Subsequently each site was infiltrated with 1 mL of a solution containing 0.25% bupivacaine with 40 mg of Depo-Medrol. Then needles were removed and bandages placed over the needle placement sites and the patient returned to the supine position on a stretcher and transported to the recovery room without hemodynamic, neurologic, or allergic reactions. Fluoroscopic images were printed for hard copy recording and digitally archived. FLUOROSCOPIC INTERPRETATION: Appropriate lesioning of the 9 targets noted. POST PROCEDURE EVALUATION: The patient was comfortable in the recovery room. The patient is aware that pain may worsen before remitting and 4 - 6 weeks may be required prior to the onset of pain relief. IMPRESSION: 1. Technically successful sacral lateral branch, lumbar dorsal ramus and L4 medial branch neurotomy for denervation from L5-S3 on the right without complication. 2. RTC in 3 weeks. 3. Estimated Blood Loss: Minimal
== END ==
LOC: RAD 12:45
PROVIDERS: ATTEND Pain Medicine Interventional Pain Medicine
DX: M25.551 Pain in right hip (principal); M53.3 Sacrococcygeal disorders, not elsewhere classified; M47.817 Spondylosis without myelopathy or radiculopathy, lumbosacral region
CPT/HCPCS: 64625; J3490 ×3; J1030

== ENCOUNTER → 2020-08-06 | Day surgery (SDC) | payer MEDICARE ==
--- NOTE | 2020-08-06 12:26 | Operative Report ---
Right knee genicular radiofrequency ablation PROCEDURE: 1. Superolateral genicular branch from the vastus lateralis 2. Superomedial genicular branch from the vastus medialis 3. Inferomedial genicular branch from the saphenous nerve 4. Medial retinacular branch from the vastus intermedius DATE OF PROCEDURE: August 06, 2020 ANESTHESIA: Local COMPLICATIONS: None PROCEDURE IN DETAIL: Hx/PE/meds/allergies/applicable labs reviewed. No changes and no contraindications were found. Full description of the procedure was provided including benefits as well as possible complications including transient increased pain, stomach irritation, mood alteration, transient weakness or parasthesias as well as more serious nerve injury, bleeding, infection or allergic reaction. Informed consent was obtained and documented. The patient was brought to the procedure room and placed on the exam table in a comfortable supine position. The place for needle placement was obtained by manu al palpation with radiographic confirmation. The sterile field was prepared by chloroprep and sterile drapes. Local anesthesia superficial and deep was provided by local infiltration of 1% lidocaine. A 17g 50mm radiofrequency introducer needle with a 4 mm active tip was placed overlying the Right knee joint and using fluoroscopic guidance the needle was advanced to a bony endpoint on the superiolateral portion of the femoral condyle of the Right. A second needle was advanced to a bony endpoint on the superiomedial portion of the femoral condyle. A third needle was then placed over the inferiomedial portion of the tibial condyle until a bony endpoint was met. A fourth needle was placed midline of the femur approximately 2cm superior to the upper border of the patella. Attempted aspiration yielded no blood. Lateral x-ray views showed all the needles at 50% depth of the femur and tibia. Motor stimulation was tested at 2.0 volts with no leg movement. Images were saved in AP and lateral. A mixture consisting of 2% lidocaine was slowly injected. Then a radiofrequency ablation of each of the geniculate nerves were done at 80 degrees Celsius for 2 minutes and 30 seconds each. Subsequently each site was infiltrated with 1 mL of a mixture containing 0.25% bupivacaine +40 mg of Depo-Medrol. The needles were withdrawn. The patient tolerated the procedure well. After observation the patient was discharged with instructions and follow up. They were also provided contact information to call regarding any concerning symptoms or questions. IMPRESSION: 1. Successful geniculate knee radiofrequency ablation was performed. 2. The patient was given prescription of Percocet post procedure. 3. RTC in 3 week(s).
== END ==
LOC: RAD 10:51
PROVIDERS: ATTEND Pain Medicine Interventional Pain Medicine
DX: M25.561 Pain in right knee (principal)
CPT/HCPCS: 64624; J3490 ×3; J1030

== ENCOUNTER → 2020-10-01 | Outpatient (CLI) | payer MEDICARE ==
--- NOTE | 2020-10-01 09:08 | WOMENS IMAGING REPORT ---
EXAM DESCRIPTION: 3D SCREENING MAMMO BILAT IMAGES COMPLETED DATE/TIME: 10/01/2020 7:48 am REASON FOR STUDY: Z12.31 ENCNTR SCREEN MAMMOGRAM FOR MALIGNANT NEOPLASM OF BREAST Z12.31 ENCNTR SCR EEN MAMMOGRAM FOR MALIGNANT NEOPLASM OF CRYSTAL M81.0 AGE-RELATED OSTEOPOROSIS W/O CURRENT PATHOLOGICAL FRAC COMPARISON: 08/09/2018 EXAM PARAMETERS: Views: Standard craniocaudal and mediolateral oblique views of each breast recorded using digital acquisition and breast tomosynthesis. Read with the assistance of CAD. .[facility] - [employer] Version 9.2 LIMITATIONS: None. FINDINGS: No suspicious masses, suspicious calcifications or architectural distortion. No areas of c oncern. IMPRESSION: NEGATIVE MAMMOGRAM. BIRADS 1. BREAST DENSITY: b. There are scattered areas of fibroglandular density. BIRAD: ASSESSMENT: 1 NEGATIVE RECOMMENDATION: ROUTINE SCREENING COMMENT: The patient has been notified of the results by letter per MQSA requirements. Additional no tification policies are in place for contacting patient with suspicious or incomplete findings. Quality ID #[id number]: The [employer] recommends an annual screening mammogram for women aged 40 years or over. This facility utilizes a reminder system to ensure that all patients receive reminder letters, and/or direct phone calls for appointments. This includes reminders for routine scr eening mammograms, diagnostic mammograms, or other Breast Imaging Interventions when appropriate. Th is patient will be placed in the appropriate reminder system. TECHNICAL DOCUMENTATION: FINDING NUMBER: (1) ASSESSMENT: (1) JOB ID: [id number] 2010 [employer]- All Rights Reserved Reading location - IP/workstation name: [email or web address]
--- NOTE | 2020-10-01 12:43 | WOMENS IMAGING REPORT ---
EXAM DESCRIPTION: BONE DENSITY HIP/SPINE IMAGES COMPLETED DATE/TIME: 10/01/2020 9:14 am REASON FOR STUDY: M81.0 AGE-RELATED OSTEOPOROSIS WITHOUT CURRENT PATHOLOGICAL FRACTURE Z12.31 ENCNT R SCREEN MAMMOGRAM FOR MALIGNANT NEOPLASM OF CRYSTAL M81.0 AGE-RELATED OSTEOPOROSIS W/O CURRENT PATHOLOG ICAL FRAC COMPARISON: 03/12/2017 TECHNIQUE: Dual-Energy X-ray Absorptiometry (DEXA) of the AP Spine and Hip. LIMITATIONS: None. FINDINGS: LUMBAR SPINE: The bone mineral density (BMD) measured from L1-L4 in the AP projection correlates with a T-score of -0.6, which is normal as defined by the World Health Organization. BMD Change vs Baseline: 11.1% HIP: The bone mineral density (BMD) measured in the left forearm correlates with a T-score of - 0.4, which is normal as defined by the World Health Organization. BMD Change vs Baseline: N/A 10 year Fracture Risk Assessment: Major Osteoporotic Fracture: Not available. Hip Fracture: Not available. IMPRESSION: 1. LUMBAR SPINE WHO CLASSIFICATION: NORMAL. 2. LEFT FOREARM WHO CLASSIFICATION: NORMAL. OVERALL ASSESSMENT: WHO CLASSIFICATION: NORMAL. COMMENT: The patient has bilateral hip replacements. The World Health Organization defines low BMD as follows: T-score: Normal: At or above -1.0 Osteopenia: Between -1.0 and -2.5 Osteoporosis: At or below -2.5 without fractures Established osteoporosis: At or below -2.5 with fractures In general, you may wish to consider: Diagnosis Treatment Follow-up DEXA Normal BMD Prevention 2-3 years Osteopenia Prevention/Therapy 1-2 years Osteoporosis Therapy Yearly TECHNICAL DOCUMENTATION: JOB ID: [id number] [employer]- All Rights Reserved Reading location - IP/workstation name: [email or web address]
== END ==
LOC: WI 08:12
PROVIDERS: ATTEND Family Medicine
DX: Z12.31 Encounter for screening mammogram for malignant neoplasm of breast (principal); M81.0 Age-related osteoporosis without current pathological fracture
CPT/HCPCS: 77063; 77067; 77080

== ENCOUNTER → 2020-11-18 | Outpatient (CLI) | payer MEDICARE ==
--- NOTE | 2020-11-18 16:28 | RADIOLOGY REPORT (SQ) ---
EXAM DESCRIPTION: T SPINE AP/LAT IMAGES COMPLETED DATE/TIME: 11/18/2020 3:58 pm REASON FOR STUDY: (M54.6)PAIN IN THORACIC SPINE M54.6 PAIN IN THORACIC SPINE COMPARISON: None. NUMBER OF VIEWS: Two views. TECHNIQUE: AP and lateral radiographic images acquired of the thoracic spine. LIMITATIONS: None. FINDINGS: MINERALIZATION: Normal. ALIGNMENT: Scoliosis in the lower thoracic spine. VERTEBRAE: No fracture or bone lesion. Maintained height, normal segmentation. DISCS: Disc spaces are fairly well maintained. There are some small bridging osteophytes in the mid to lower thoracic spine. HARDWARE: None in the spine. MEDIASTINUM AND SOFT TISSUES: Normal heart size and aortic contour. No soft tissue abnormality. VISUALIZED LUNG ROJAS: Clear. OTHER: No other significant finding. IMPRESSION: Scoliosis. Thoracic spondylosis. TECHNICAL DOCUMENTATION: JOB ID: [id number] 2010 [employer]- All Rights Reserved Reading location - IP/workstation name: [email or web address]
== END ==
LOC: RAD 15:34
PROVIDERS: ATTEND Pain Medicine Interventional Pain Medicine
DX: M41.9 Scoliosis, unspecified (principal); M47.814 Spondylosis without myelopathy or radiculopathy, thoracic region; M54.6 Pain in thoracic spine
CPT/HCPCS: 72070